=== PATIENT | female | born 1980 | race Caucasian/White ===

== ENCOUNTER 2018-08-02 01:55 | Emergency (ER) | payer OTHER ==
[~2018-08-02] VITALS: Ht 167.6 cm; Wt 64.9 kg
[~2018-08-02 01:55] MED LIST: AUGMENTIN 875875 MG PO; BACTRIM DS TAB1 EACH PO; DARVOCET-N 1001 EACH PO; DIFLUCAN200 MG PO; FLEXERIL PO; HYDROXYZINE; IBUPROFEN 800800 M1 PO; MEDROL DOSPAK21 TAB; NOHOMEMEDICATIONS; PERCOCET 10-321 EACH PO; PERCOCET 5-3251 EACH PO; PERCOCET PO; PHENERGAN 25 MG25 M1 PO; SEROQUEL 12.512.5 MG; ZOFRAN ODT4 MG PO
[2018-08-02 02:19] LABS: ABSOLUTE EOSINOPHILS 0.1 thou/uL (0.0-0.7); ABSOLUTE LYMPHOCYTES 1.5 thou/uL (0.8-5.3); ABSOLUTE MONOCYTES 0.6 thou/uL (0.0-1.2); BASOPHILS 0.6 %; EOSINOPHILS 1.2 %; HEMATOCRIT 36.3 % (37.0-47.0); HEMOGLOBIN 12.1 gm/dL (12.0-15.0); LYMPHOCYTES 24.3 %; MCH 30.1 pg (26.0-34.0); MCHC 33.4 g/dL (28.0-37.0); MCV 90.1 fL (80.0-100.0); MONOCYTES 10.1 %; MPV 8.9 fl. (7.2-11.1); NUCLEATED RBCS 0 /100WBC; PLATELET COUNT* 238 thou/uL (150-400); POLYS 63.8 %; RBC 4.03 mil/uL (4.20-5.00); RDW-CV 13.2 % (10.5-14.5); WBC 6.3 thou/uL (4.0-11.0)
[2018-08-02 02:28] LABS: ANION GAP 7 mmol/L (7-16); BUN 15 mg/dL (7-18); CALCIUM 8.9 mg/dL (8.5-10.1); CHLORIDE 105 mmol/L (98-107); CO2 29 mmol/L (21-32); CREATININE 0.9 mg/dL (0.6-1.3); GLUCOSE 105 mg/dL (70-99); POTASSIUM 3.4 mmol/L (3.5-5.1); SODIUM 141 mmol/L (136-145)
[2018-08-02 02:38] LABS: ALBUMIN 3.4 g/dL (3.4-5.0); ALKALINE PHOSPHATASE 51 U/L (46-116); SGOT 22 U/L (15-37); SGPT 24 U/L (30-65); TOTAL BILIRUBIN 0.3 mg/dL (<0.1-1.0); TOTAL PROTEIN 6.7 g/dL (6.4-8.2); TROPONIN-I LEVEL <0.06 ng/mL (<0.06)
[2018-08-02 02:56] LABS: URINE BILIRUBIN NEGATIVE (Negative); URINE BLOOD NEGATIVE (Negative); URINE CLARITY CLEAR; URINE COLOR YELLOW; URINE GLUCOSE-RANDOM NEGATIVE (Negative); URINE KETONES NEGATIVE (Negative); URINE LEUKOCYTES-REFLEX NEGATIVE (Negative); URINE NITRITE-REFLEX NEGATIVE (Negative); URINE PROTEIN NEGATIVE (Negative); URINE SPECIFIC GRAVITY >= 1.030 (1.005-1.030); URINE UROBILINOGEN 0.2 E.U./dl (0.2-1.0)
[2018-08-02 03:03] LABS: AMP/METHAMP POSITIVE (Negative); BARBITURATES Negative (Negative); BENZODIAZEPINES Negative (Negative); COCAINE Negative (Negative); METHADONE Negative (Negative); OPIATES Negative (Negative); PCP Negative (Negative); THC Negative (Negative)
[2018-08-02] MEDS ORDERED: OXYCODON-ACETA1 EAC1 PO (06:30)
[2018-08-02] MEDS ORDERED: ERYTHROMYCIN E3.5 G2 OPHTHALMIC (06:30)
[2018-08-02 07:10] VITALS: BP 129/73
--- NOTE | 2018-08-02 11:56 | EKG ---
[place] [address] ELECTROCARDIOGRAM REPORT Name: VERÓNICA MERINO Room: [facility]#: [id number] Admission: 08/02/18 Attend Phys: Discharge: Date of : 76 Report #: [id number] THIS REPORT FOR: //name// [facility] ED Test Date: 2018-08-02 Test Time: 02:10:03 Pat Name: VERÓNICA MERINO Department: Room: Gender: F [employer] Operator Helper: : 1980 Requested By: Melita Geller Order Number: [id number] MD: Reginald Melendrez Measurements Intervals [place] Rate: 96 P: 42 NV: 163 QRS: 26 QRSD: 104 T: 29 QT: 355 QTc: 449 Interpretive Statements Sinus rhythm RSR' in V1 or V2, right VCD or RVH Compared to ECG 06/20/2017 23:02:42 no change Electronically Signed On 08-02-2018 11:55:45 COMPENSATION AND BENEFITS MANAGER by Reginald Melendrez [email or web address] <ELECTRONICALLY SIGNED> By: Reginald Melendrez MD, [facility] 08/02/18 1155 9 9 Reginald Melendrez MD, FACC /EPI
== END 2018-08-02 07:41 | disposition home or self-care (01) ==
LOC: M.ERS 01:55
PROVIDERS: Emergency Medicine
DX: H57.11 Ocular pain, right eye (principal); H53.141 Visual discomfort, right eye; F17.200 Nicotine dependence, unspecified, uncomplicated; F31.9 Bipolar disorder, unspecified; Z90.710 Acquired absence of both cervix and uterus; Z88.8 Allergy status to other drugs, medicaments and biological substances